=== PATIENT | male | born 1990 | race Caucasian/White ===

== ENCOUNTER 2017-02-11 18:18 | Emergency (ER) | payer BC ==
[2017-02-11 18:25] VITALS: TEMP 97.7
[2017-02-11] MEDS ORDERED: PROPARACAINE 0.5% 15 ML OPHT DROP ONE (18:33)
--- NOTE | 2017-02-11 18:38 | EDPHY ---
H & P Time Seen by Provider: 02/11/17 18:31 HPI/ROS: CHIEF COMPLAINT: Right eye injury HISTORY OF PRESENT ILLNESS: The patient is a 26-year-old male who presents to the emergency department with right eye injury. 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 He states he was working up CO2 charged bites. When he disconnected it was over charged and with back into his eye. He states he initially could see after the event but his eye is swollen shut. He has mild discomfort surrounding his eye. He reports market swelling. No headache. No nausea or vomiting. No previous eye injury. The patient is not wearing contacts. REVIEW OF SYSTEMS: My complete review of systems is negative except as mentioned in the HPI. Past Medical/Surgical History: Denies Smoking Status: Current every day smoker Physical Exam: Vitals noted GENERAL: Well-appearing, in no acute distress, alert. eye: Patient has swelling surrounding his right eye. There are 2, 1 cm lacerations to the lateral aspect of the patient's face. These do not involve the eyelids or eye. The patient has a medial upper eyelid superficial laceration at this 0.5 cm in length. This involves only the outer most layer again. It does not extend to the medial canthus. Visual acuity: Noted. Eyelids: Moderate swelling surrounding his eye. The patient has a 0.5 cm laceration of the medial upper eyelid as above. Conjunctiva and sclera: Large subconjunctival hemorrhage. No exudate. Not injected. Corneas: Normal inspection. Examined with fluorescein dye: No uptake, abrasion, or ulcer. EOMs: Intact. Pupils: PERRL, normal accommodation. Anterior chambers: Normal inspection. No hyphema. No cells or flare. Posterior segments: Normal funduscopic exam NECK: No thyromegaly, no lymphadenopathy, supple. RESPIRATORY: Clear to auscultation bilaterally, no rales, rhonchi or wheezing. CVS: Regular rate and rhythm, no rubs, murmurs, or gallops. ABDOMEN: Soft, nontender. BACK: Normal to inspection, no CVA tenderness. SKIN: Normal color, no rash, warm, dry. No pallor. EXTREMITIES: No pedal edema, no calf tenderness, no Homans sign or cords, no joint swelling. NEURO/PSYCH: Alert and orientedx3, normal mood and affect, normal motor sensory exam. No obvious cranial nerve deficit. Constitutional: Initial Vital Signs Temperature (C) 36.5 C 02/11/17 18:22 Heart Rate 82 02/11/17 18:22 Respiratory Rate 18 02/11/17 18:22 Blood Pressure 128/94 H 02/11/17 18:22 O2 Sat (%) 96 02/11/17 18:22 O2 Delivery Mode Room Air Allergies/Adverse Reactions: Penicillins Allergy (Verified 02/11/17 18:22) Home Medications: Medication Instructions Recorded NK [No Known Home Meds] 02/11/17 Medical Decision Making Procedures: Procedure: Laceration repair #1. Verbal consent was obtained from the patient. The 1 cm laceration on the the right lateral face was anesthetized in the usual fashion. The wound was irrigated, draped and explored to its base with a gloved finger. There were no deep structures involved. The wound was repaired with [ 6 0 nylon]. The wound repair was [ simple]. The procedure was performed by myself. Procedure: Laceration repair #2. Verbal consent was obtained from the patient. The [ 1 cm] laceration on the [ right lateral face superior to laceration #1] was anesthetized in the usual fashion. The wound was irrigated, draped and explored to its base with a gloved finger. There were no deep structures involved. The wound was repaired with 6 0 nylon. The wound repair was simple. The procedure was performed by myself. Procedure: Laceration repair #3. Verbal consent was obtained from the patient. The [0.5 cm ] laceration on the medial upper eyelid was anesthetized in the usual fashion. The wound was only the outer layer of skin. It foes not extend into the medial cancellous or tarsal muscle or edge. The wound was repaired with 7 0 nylon. The wound repair was simple. The procedure was performed by myself. ED Course/Re-evaluation: In the emergency department I discussed possible etiologies with the patient. I answered all his questions. The patient's lacerations were anesthetized with 1% lidocaine with epinephrine. Proparacaine drops were applied. The patient's face and eye was irrigated. Patient's lacerations were repaired. I performed a slit-lamp exam as documented in the physical exam. I rechecked the patient on numerous occasions. He was doing well during his stay. He states his vision was normal on recheck. He had no change in his pupil exam. His subconjunctival hemorrhage remained stable. He did not develop a hyphema on repeat exam. Facial CT: Please refer the dictated report by Dr. Howe. I discussed the case with him. The patient has a fracture of the inferior orbital wall as well as the lamina papyracea. I discussed the case with the on-call ncr operator, Dr. Gutierrez, who will see the patient on Monday. I discussed all the findings with the patient. I answered all his questions. I instructed him to follow up with Dr. Gutierrez on Monday. The patient states that he is from [place]. If the patient has an ncr operator in [place] that was cm on Monday, he will follow up there. Otherwise, the patient is instructed to follow up with ncr operator in [place]. The patient is aware that he needs to be evaluated on Monday. The patient was given ciprofloxacin eyedrops instructed on use. The patient was given warnings prior to leaving. He will return with worsening symptoms. Differential Diagnosis: My differential includes but is not limited to orbital disruption, corneal abrasion, iritis, eye laceration, laceration, facial fracture - Data Points Medications Given: Discontinued Medications Ibuprofen (Motrin) 600 mg PO EDNOW ONE Stop: 02/11/17 20:17 Last Admin: 02/11/17 20:20 Dose: 600 mg Departure - Departure Disposition: Home, Routine, Self-Care Clinical Impression: Subconjunctival hemorrhage of right eye Eyelid laceration, right Qualifiers: Encounter type: initial encounter Qualified Code(s): S01.111A - Laceration without foreign body of right eyelid and periocular area, initial encounter Facial laceration Qualifiers: Encounter type: initial encounter Qualified Code(s): S01.81XA - Laceration without foreign body of other part of head, initial encounter Orbital floor fracture Qualifiers: Encounter type: initial encounter Fracture type: closed Laterality: right Qualified Code(s): S02.31XA - Fracture of orbital floor, right side, initial encounter for closed fracture Condition: Good Instructions: Facial Laceration (ED), Subconjunctival Hemorrhage (ED), Facial Fracture (ED) Additional Instructions: Return with increasing eye pain, worsening vision, headache, vomiting or any other concerns. Keep your wound clean and dry. You are to have your sutures removed in 7 days. Come back to the emergency department for removal Referrals: Luis Manuel Gutierrez MD [Medical Doctor] - 1-2 days without fail
[2017-02-11] MEDS ORDERED: FLUORESCEIN SODIUM 1 MG STRIP OP ONE (20:11)
[2017-02-11] MEDS ORDERED: CIPROFLOXACIN 0.3% DROPS PREPACK OPHT.BTL TAKEHOME ONE (20:15)
[2017-02-11] MEDS ORDERED: IBUPROFEN 600 MG TAB PO ONE ×2 (20:16)
[2017-02-11 21:15] VITALS: BP 122/77; PULSE 81; RESP 16; O2SAT 97
== END 2017-02-11 21:10 | disposition home or self-care (01) ==
PROC: 0HQ1XZZ Repair Face Skin, External Approach (ICD-10-PCS; principal; 2017-02-11)
DX: S02.31XA Fracture of orbital floor, right side, initial encounter for closed fracture (principal); S01.111A Laceration without foreign body of right eyelid and periocular area, initial encounter; S01.81XA Laceration without foreign body of other part of head, initial encounter; H11.31 Conjunctival hemorrhage, right eye; F17.200 Nicotine dependence, unspecified, uncomplicated; W22.8XXA Striking against or struck by other objects, initial encounter; Y99.8 Other external cause status; Y93.89 Activity, other specified